=== PATIENT | female | born 1950 | race American Indian/Alaskan Native ===

== ENCOUNTER 2019-12-28 11:52 | Outpatient (CLI) | payer MEDICARE ==
--- NOTE | 2019-12-28 15:40 | Mammography Report ---
DIGITAL SCREENING MAMMOGRAM WITH CAD, 12/28/2019 INDICATION: Routine screening mammography. TECHNIQUE: Digital bilateral 2D mammography was obtained in the craniocaudal and mediolateral obliq ue projections. This examination was interpreted with the benefit of Computer-Aided Detection analysi s. COMPARISON: 11/22/2013 FINDINGS: Breast Density: The breasts are heterogeneously dense, which may obscure small masses. Left asymmetries and left upper outer calcifications require additional imaging. There is no evidence of dominant mass, suspicious calcifications or architectural distortion in the right breast. IMPRESSION: Left asymmetries and left upper outer calcifications requiring additional imaging. Recomm end recall for left lateral and spot magnification views and left breast ultrasound if needed. Follow up recommendation: Special View: Spot Category 0: Incomplete. Needs additional imaging evaluation and/or prior mammograms for comparison. A "normal" or negative report should not discourage follow up or biopsy of a clinically significant f inding. A written summary of these findings will be mailed to the patient. The patient will be entered into a mammography reporting system which will generate a reminder letter for the patient's next appointmen t at the appropriate interval. The [employer] recommends yearly mammograms starting at age 40 and continuing as l stephane as a woman is in good health. Breast MRI is recommended for women with an approximate 20-25% or greater lifetime risk of breast cancer, including women with a strong family history of breast or ova luis angel cancer or who have been treated for Hodgkin's disease. Signer Name: Ravi Burgos MD Signed: 12/28/2019 3:35 PM Workstation Name: [id number]
== END 2019-12-28 11:53 | disposition home or self-care (01) ==
LOC: MAMMO 11:52
PROVIDERS: ATTEND Internal Medicine
DX: Z12.31 Encounter for screening mammogram for malignant neoplasm of breast (principal)
CPT/HCPCS: 77067

== ENCOUNTER 2021-03-12 13:50 | Emergency (ER) | payer MEDICARE ==
--- NOTE | 2021-03-12 14:10 | Event Note ---
ED Screening Note Date of service: 03/12/21 Time: 14:08 ED Screening Note: 71-year-old female with a past medical history of COPD, coronary artery disease currently on Plavix, hypertension, hyperlipidemia and diabetes presents to the ER today with complaints of left upper back pain radiating around into her left chest and substernal area. Patient states that the pain started in her left back about 3 days ago and has since been radiating around into those areas. She has chronic shortness of breath secondary to COPD but she denies any worsening shortness of breath. She states that she has had a productive cough with white sputum but no wheezing. She states that the pain is worse with deep breaths and when she coughs and she describes it as a tight sharp pain. She denies any apparent fever at home. She denies any nausea vomiting, abdominal pain, lower extremity swelling or calf pain. This initial assessment/diagnostic orders/clinical plan/treatment(s) is/are subject to change based on patients health status, clinical progression and re- assessment by fellow clinical providers in the ED. Further treatment and workup at subsequent clinical providers discretion. Patient/guardian urged not to elope from the ED as their condition may be serious if not clinically assessed and managed. Initial orders include: Chest pain order set
--- NOTE | 2021-03-12 14:33 | XRay Report ---
CHEST 2 VIEWS INDICATION: left upper back/left chest pain. COMPARISON: 10/27/2013 FINDINGS: SUPPORT DEVICES: None. HEART: Within normal limits. LUNGS/PLEURA: Mild patchy left basilar airspace disease with otherwise clear lungs. No pneumothorax. ADDITIONAL FINDINGS: None. IMPRESSION: 1. Pulmonary findings as above. Signer Name: Cleveland Delgado MD Signed: 03/12/2021 2:28 PM Workstation Name: [id number]
[2021-03-12 15:05] LABS: Basophils # (Auto) 0.1 K/mm3 (0.0-0.1); Basophils % (Auto) 0.5 % (0.0-1.8); Eosinophils % (Auto) 0.4 % (0.0-4.3); Hemoglobin 14.7 gm/dl (10.1-14.3); Lymphocytes # (Auto) 1.2 K/mm3 (1.2-5.4); Lymphocytes % (Auto) 11.2 % (13.4-35.0); Mean Corpuscular HGB Conc 34 % (30-34); Mean Corpuscular Volume 90 fl (79-97); Monocytes # (Auto) 0.6 K/mm3 (0.0-0.8); Monocytes % (Auto) 5.5 % (0.0-7.3); Platelet Count 304 K/mm3 (140-440); Red Blood Count 4.88 M/mm3 (3.65-5.03); Red Cell Distribution Width 14.3 % (13.2-15.2)
[2021-03-12 15:15] LABS: INR 0.91 (0.87-1.13); Partial Thromboplastin Time 27.7 Sec. (24.2-36.6)
[2021-03-12 15:27] LABS: Alanine Aminotransferase 10 units/L (7-56); Albumin 4.1 g/dL (3.9-5); BUN/Creatinine Ratio 14; Blood Urea Nitrogen 11 mg/dL (7-17); Calcium 10.5 mg/dL (8.4-10.2); Hemolysis Index 22
[2021-03-12] MEDS ORDERED: AZITHROMYCIN/NS 500 MG/250 ML 500 MG/250 ML BAG IV ONE (21:55)
[2021-03-12] MEDS ORDERED: cefTRIAXone/NS 1 GM/50 ML 1 GM/50 ML BAG IV ONE (21:55)
--- NOTE | 2021-03-12 22:01 | Emergency Department Report ---
ED General Adult HPI - General Chief complaint: Chest Pain Stated complaint: CHEST PAIN, BACK PAIN Time Seen by Provider: 03/12/21 14:07 Source: patient Mode of arrival: Wheelchair Limitations: No Limitations - History of Present Illness Initial comments: Patient is 71 years old female with history of hypertension, hyperlipidemia, diabetes and coronary artery disease. Patient presented to the ER complaining left posterior back that radiated to her anterior chest wall. Patient stated the pain is sharp and increases with cough. Patient stated that she has been having productive cough for the last 3 days also. Patient denied any fever or chills. No shortness of breath. - Related Data Home Medications Medication Instructions Recorded Confirmed Last Taken Albuterol Sulfate [Proventil HFA] 1 - 2 puff IH Q4H PRN 10/27/13 10/27/13 10/27/13 2 Cholecalciferol (Vitamin D3) 5,000 unit PO DAILY 10/27/13 10/27/13 10/27/13 19:51 [Vitamin D3] 1 Clopidogrel Bisulfate [Plavix] 75 mg PO DAILY 10/27/13 10/28/13 10/27/13 19:52 75 Gabapentin [Neurontin] 600 mg PO HS 10/27/13 10/28/13 10/27/13 19:52 300 Isosorbide Mononitrate [Isosorbide 60 mg PO DAILY 10/27/13 10/28/13 10/27/13 Mononitrate ER (IMDUR)] 60 Lisinopril/Hydrochlorothiazide 1 tab PO QDAY 10/27/13 10/27/13 10/27/13 19:50 [Zestoretic 20-25 mg] 1 Oxybutynin [Ditropan] 5 mg PO DAILY 10/27/13 10/28/13 10/27/13 19:52 5 Simvastatin 20 mg PO QDAY 10/27/13 10/27/13 10/27/13 20 Previous Rx's Medication Instructions Recorded Last Taken Type Pantoprazole [Protonix TAB] 40 mg PO DAILY #30 tablet 10/31/13 Unknown Rx Allergies Allergy/AdvReac Type Severity Reaction Status Date / Time aspirin Allergy Hives Verified 03/12/21 14:08 Sulfa (Sulfonamide Allergy Vomiting Verified 03/12/21 14:08 Antibiotics) ED Review of Systems ROS: Stated complaint: CHEST PAIN, BACK PAIN Other details as noted in HPI Comment: All other systems reviewed and negative Constitutional: denies: chills, fever Respiratory: cough. denies: shortness of breath, SOB with exertion, SOB at rest, wheezing Cardiovascular: denies: chest pain, palpitations, dyspnea on exertion Gastrointestinal: denies: abdominal pain ED Past Medical Hx - Past Medical History Hx Hypertension: Yes Hx Heart Attack/AMI: Yes ([place]) Hx Congestive Heart Failure: No Hx Diabetes: No Hx Arthritis: Yes Hx Asthma: No Hx COPD: Yes (COPD) - Surgical History Additional Surgical History: hysterectomy - Social History Smoking Status: Current Every Day Smoker Substance Use Type: None - Medications Home Medications: Home Medications Medication Instructions Recorded Confirmed Last Taken Type Albuterol Sulfate [Proventil HFA] 1 - 2 puff IH Q4H PRN 10/27/13 10/27/13 10/27/13 History 2 Cholecalciferol (Vitamin D3) 5,000 unit PO DAILY 10/27/13 10/27/13 10/27/13 19:51 History [Vitamin D3] 1 Clopidogrel Bisulfate [Plavix] 75 mg PO DAILY 10/27/13 10/28/13 10/27/13 19:52 History 75 Gabapentin [Neurontin] 600 mg PO HS 10/27/13 10/28/13 10/27/13 19:52 History 300 Isosorbide Mononitrate [Isosorbide 60 mg PO DAILY 10/27/13 10/28/13 10/27/13 History Mononitrate ER (IMDUR)] 60 Lisinopril/Hydrochlorothiazide 1 tab PO QDAY 10/27/13 10/27/13 10/27/13 19:50 History [Zestoretic 20-25 mg] 1 Oxybutynin [Ditropan] 5 mg PO DAILY 10/27/13 10/28/13 10/27/13 19:52 History 5 Simvastatin 20 mg PO QDAY 10/27/13 10/27/13 10/27/13 History 20 Pantoprazole [Protonix TAB] 40 mg PO DAILY #30 tablet 10/31/13 Unknown Rx ED Physical Exam - General Limitations: No Limitations General appearance: alert, in no apparent distress - Head Head exam: Present: atraumatic, normocephalic, normal inspection - Eye Eye exam: Present: normal appearance, PERRL - ENT ENT exam: Present: normal exam, normal orophraynx, mucous membranes moist - Neck Neck exam: Present: normal inspection. Absent: tenderness, meningismus - Respiratory Respiratory exam: Present: rales. Absent: respiratory distress, wheezes, rhonchi, accessory muscle use, decreased breath sounds, prolonged expiratory - Cardiovascular Cardiovascular Exam: Present: regular rate, normal rhythm, normal heart sounds - GI/Abdominal GI/Abdominal exam: Present: soft, normal bowel sounds. Absent: distended, tenderness, guarding, rebound, rigid, organomegaly, mass, bruit, pulsatile mass, hernia - Extremities Exam Extremities exam: Present: normal inspection, full ROM, normal capillary refill. Absent: tenderness, pedal edema, calf tenderness - Back Exam Back exam: Present: normal inspection, full ROM. Absent: CVA tenderness (R), CVA tenderness (L) - Neurological Exam Neurological exam: Present: alert, oriented X3, CN II-XII intact, normal gait, reflexes normal. Absent: motor sensory deficit - Psychiatric Psychiatric exam: Present: normal mood - Skin Skin exam: Present: warm, intact, normal color ED Course Vital Signs 03/12/21 03/12/21 13:56 21:48 Temperature 98.8 F Pulse Rate 93 H 68 Respiratory 20 18 Rate Blood Pressure 180/89 Blood Pressure 181/104 [Right] O2 Sat by Pulse 93 96 Oximetry ED Medical Decision Making - Lab Data Result diagrams: 03/12/21 14:30 03/12/21 14:30 - EKG Data -: EKG Interpreted by Dc EKG shows normal: sinus rhythm Rate: normal - EKG Data Interpretation: no acute changes - Radiology Data Radiology results: report reviewed - Medical Decision Making Patient is 71 years old female with history of hypertension, hyperlipidemia, diabetes and coronary artery disease. Patient presented to the ER complaining left posterior back that radiated to her anterior chest wall. Patient stated the pain is sharp and increases with cough. Patient stated that she has been having productive cough for the last 3 days also. Patient denied any fever or chills. No shortness of breath. Patient stated that she received 2 doses of COVID-19 vaccine last dose was February 16. EKG is unremarkable. Labs reviewed and is unremarkable including negative troponin x3. Chest x-ray showed left lower lobe infiltrate consistent with community-acquired pneumonia. Patient received Rocephin 1 g and 500 mg of Zithromax. Patient given prescription for Zithromax and advised to follow-up with her primary doctor in the next 2 to 3 days and to return to the ER if she develop any new symptoms. Critical care attestation.: If time is entered above; I have spent that time in minutes in the direct care of this critically ill patient, excluding procedure time. ED Disposition Clinical Impression: Left lower lobe pneumonia Disposition: DC- TO HOME OR SELFCARE Is pt being admited?: No Condition: Stable Instructions: Bacterial Pneumonia (ED), Community-Acquired Pneumonia, Adult Referrals: PRIMARY CARE, [Primary Care Provider] - 3-5 Days
[2021-03-13 00:59] VITALS: BP 138/79
--- NOTE | 2021-03-14 17:26 | Electrocardiograph Report ---
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
== END 2021-03-13 00:45 | disposition home or self-care (01) ==
LOC: ED 13:50
DX: J18.1 Lobar pneumonia, unspecified organism (principal); I10 Essential (primary) hypertension; I25.2 Old myocardial infarction; M19.91 Primary osteoarthritis, unspecified site; J44.9 Chronic obstructive pulmonary disease, unspecified; F17.200 Nicotine dependence, unspecified, uncomplicated; Z90.710 Acquired absence of both cervix and uterus; Z79.899 Other long term (current) drug therapy; Z88.2 Allergy status to sulfonamides; Z88.8 Allergy status to other drugs, medicaments and biological substances
CPT/HCPCS: 36415; 71046; 80053; 83690; 84484; 85025; 85610; 85730; 87040; 93005; 96365; 96366; 96367; 99284; J0456; J0696

== ENCOUNTER 2021-03-18 09:08 | Emergency (ER) | payer MEDICARE ==
--- NOTE | 2021-03-18 10:33 | XRay Report ---
CHEST 2 VIEWS INDICATION / CLINICAL INFORMATION: Crackles along left lower lung. Recently diagnosed pneumonia. COMPARISON: 2 views of the chest from 03/12/2021. FINDINGS: SUPPORT DEVICES: None. HEART / MEDIASTINUM: No significant abnormality. LUNGS / PLEURA: Left basilar pleural-parenchymal opacities have increased. Increased right basilar op acities are also noted. The lungs are otherwise clear. No pneumothorax. ADDITIONAL FINDINGS: No significant additional findings. IMPRESSION: Increased bibasilar opacities, left greater than right, which are most concerning for interval progre ssion of pneumonia. Continued radiographic follow-up to resolution is recommended. Signer Name: Darrick Son MD Signed: 03/18/2021 10:28 AM Workstation Name: [id number]
[2021-03-18] MEDS ORDERED: hydrALAZINE 20 MG/1 ML INJ IV ONE (13:08)
[2021-03-18 13:35] LABS: Basophils % (Auto) 0.4 % (0.0-1.8); Eosinophils # (Auto) 0.1 K/mm3 (0.0-0.4); Eosinophils % (Auto) 1.3 % (0.0-4.3); Hematocrit 44.3 % (30.3-42.9); Hemoglobin 14.6 gm/dl (10.1-14.3); Lymphocytes # (Auto) 1.6 K/mm3 (1.2-5.4); Lymphocytes % (Auto) 18.1 % (13.4-35.0); Mean Corpuscular HGB Conc 33 % (30-34); Mean Corpuscular Volume 91 fl (79-97); Monocytes # (Auto) 0.6 K/mm3 (0.0-0.8); Monocytes % (Auto) 6.6 % (0.0-7.3); Platelet Count 321 K/mm3 (140-440); Red Blood Count 4.89 M/mm3 (3.65-5.03)
[2021-03-18 13:57] LABS: Alanine Aminotransferase 9 units/L (7-56); Blood Urea Nitrogen 10 mg/dL (7-17); Calcium 10.3 mg/dL (8.4-10.2); Hemolysis Index 4
[2021-03-18 13:58] LABS: BUN/Creatinine Ratio 14
--- NOTE | 2021-03-18 14:47 | Emergency Department Report ---
HPI - General Chief Complaint: Back Pain/Injury Time Seen by Provider: 03/18/21 10:02 - HPI HPI: This is a 71-year-old female who presents to the emergency department with a complaint of some pain from the middle left back that wraps around towards her chest. It is associated with some shortness of breath and an occasional mixed dry and productive cough. This has been going on for the past week. The patient was seen here 6 days ago when the symptoms first began and was found to have a left lower lobe pneumonia. She was given a dose of Rocephin in the emergency department and discharged on a Z-Jacek. She finished the Z-Jacek but says that her symptoms have not improved. She denies any fever, lower extremity swelling, nausea, vomiting or diaphoresis. She has a past medical history of asthma, COPD not oxygen dependent, coronary artery disease with previous [place], hypertension. She is a tobacco smoker. No recent travel or sick contacts at home. She has a primary care physician through the [facility] but has not seen them regarding her symptoms. ED Past Medical Hx - Past Medical History Previous Medical History?: Yes Hx Hypertension: Yes Hx Heart Attack/AMI: Yes ([place]) Hx Congestive Heart Failure: No Hx Diabetes: No Hx Arthritis: Yes Hx Asthma: No Hx COPD: Yes (COPD) - Surgical History Past Surgical History?: Yes Additional Surgical History: hysterectomy - Social History Smoking Status: Current Every Day Smoker Substance Use Type: None - Medications Home Medications: Home Medications Medication Instructions Recorded Confirmed Last Taken Type Albuterol Sulfate [Proventil HFA] 1 - 2 puff IH Q4H PRN 10/27/13 10/27/13 10/27/13 History 2 Cholecalciferol (Vitamin D3) 5,000 unit PO DAILY 10/27/13 10/27/13 10/27/13 19:51 History [Vitamin D3] 1 Clopidogrel Bisulfate [Plavix] 75 mg PO DAILY 10/27/13 10/28/13 10/27/13 19:52 History 75 Gabapentin [Neurontin] 600 mg PO HS 10/27/13 10/28/13 10/27/13 19:52 History 300 Isosorbide Mononitrate [Isosorbide 60 mg PO DAILY 10/27/13 10/28/13 10/27/13 History Mononitrate ER (IMDUR)] 60 Lisinopril/Hydrochlorothiazide 1 tab PO QDAY 10/27/13 10/27/13 10/27/13 19:50 History [Zestoretic 20-25 mg] 1 Oxybutynin [Ditropan] 5 mg PO DAILY 10/27/13 10/28/13 10/27/13 19:52 History 5 Simvastatin 20 mg PO QDAY 10/27/13 10/27/13 10/27/13 History 20 Pantoprazole [Protonix TAB] 40 mg PO DAILY #30 tablet 10/31/13 Unknown Rx Azithromycin [Zithromax Z-JACEK] 250 mg PO DAILY 1 Days tab 03/12/21 Unknown Rx Benzonatate [Tessalon Perles] 100 mg PO Q8HR PRN #20 capsule 03/18/21 Unknown Rx levoFLOXacin [Levaquin] 750 mg PO QDAY #7 tablet 03/18/21 Unknown Rx ED Review of Systems ROS: Stated complaint: C PACK RE EXAM Other details as noted in HPI Physical Exam - Physical Exam Vital Signs: Vital Signs 03/18/21 03/18/21 03/18/21 09:42 13:25 13:37 Temperature 98.4 F Pulse Rate 86 87 Respiratory 16 18 18 Rate Blood Pressure 175/94 140/80 [Right] O2 Sat by Pulse 97 97 97 Oximetry Physical Exam: GENERAL: The patient is well-developed well-nourished. HENT: Normocephalic. Atraumatic. Patient has moist mucous membranes. EYES: Extraocular motions are intact. NECK: Supple. Trachea is midline. CHEST/LUNGS: Mild rhonchi heard. No tachypnea or accessory muscle use. HEART/CARDIOVASCULAR: Regular. There is no tachycardia. There is no murmur. ABDOMEN: Abdomen is soft, nontender. Patient has normal bowel sounds. There is no abdominal distention. SKIN: Skin is warm and dry. NEURO: The patient is awake, alert, and oriented. The patient is cooperative. The patient has no focal neurologic deficits. Normal speech. MUSCULOSKELETAL: There is no tenderness or deformity. There is no limitation range of motion. There is no evidence of acute injury. BACK: No midline thoracic or lumbar tenderness to palpation. There is some reproducible lateral lower thoracic paraspinal tenderness to palpation. ED Course Vital Signs 03/18/21 03/18/21 03/18/21 09:42 13:25 13:37 Temperature 98.4 F Pulse Rate 86 87 Respiratory 16 18 18 Rate Blood Pressure 175/94 140/80 [Right] O2 Sat by Pulse 97 97 97 Oximetry ED Medical Decision Making - Lab Data Result diagrams: 03/18/21 13:07 03/18/21 13:07 Lab Results 03/18/21 03/18/21 Range/Units 13:07 13:07 WBC 8.6 (4.5-11.0) K/mm3 RBC 4.89 (3.65-5.03) M/mm3 Hgb 14.6 H (10.1-14.3) gm/dl Hct 44.3 H (30.3-42.9) % MCV 91 (79-97) fl MCH 30 (28-32) pg MCHC 33 (30-34) % RDW 14.0 (13.2-15.2) % Plt Count 321 (140-440) K/mm3 Lymph % (Auto) 18.1 (13.4-35.0) % [place] % (Auto) 6.6 (0.0-7.3) % Eos % (Auto) 1.3 (0.0-4.3) % Baso % (Auto) 0.4 (0.0-1.8) % Lymph # (Auto) 1.6 (1.2-5.4) K/mm3 [place] # (Auto) 0.6 (0.0-0.8) K/mm3 Eos # (Auto) 0.1 (0.0-0.4) K/mm3 Baso # (Auto) 0.0 (0.0-0.1) K/mm3 Seg Neutrophils % 73.6 H (40.0-70.0) % Seg Neutrophils # 6.4 (1.8-7.7) K/mm3 Sodium 139 (137-145) mmol/L Potassium 4.5 (3.6-5.0) mmol/L Chloride 101.5 (98-107) mmol/L Carbon Dioxide 28 (22-30) mmol/L Anion Gap 14 mmol/L BUN 10 (7-17) mg/dL Creatinine 0.7 (0.6-1.2) mg/dL Estimated GFR > 60 ml/min BUN/Creatinine Ratio 14 % Glucose 194 H (65-100) mg/dL Calcium 10.3 H (8.4-10.2) mg/dL Total Bilirubin < 0.20 (0.1-1.2) mg/dL AST 9 (5-40) units/L ALT 9 (7-56) units/L Alkaline Phosphatase 118 (35-129) units/L Troponin T < 0.010 (0.00-0.029) ng/mL Total Protein 7.4 (6.3-8.2) g/dL Albumin 4.0 (3.9-5) g/dL Albumin/Globulin Ratio 1.2 % - EKG Data -: EKG Interpreted by Wa EKG shows normal: sinus rhythm, axis, intervals, QRS complexes, ST-T waves Rate: normal - EKG Data When compared to previous EKG there are: no significant change Interpretation: unchanged when compared t (03/12/21) - Radiology Data Radiology results: report reviewed CHEST 2 VIEWS INDICATION / CLINICAL INFORMATION: Crackles along left lower lung. Recently diagnosed pneumonia. COMPARISON: 2 views of the chest from 03/12/2021. FINDINGS: SUPPORT DEVICES: None. HEART / MEDIASTINUM: No significant abnormality. LUNGS / PLEURA: Left basilar pleural-parenchymal opacities have increased. Increased right basilar opacities are also noted. The lungs are otherwise clear. No pneumothorax. ADDITIONAL FINDINGS: No significant additional findings. IMPRESSION: Increased bibasilar opacities, left greater than right, which are most concerning for interval progression of pneumonia. Continued radiographic follow-up to resolution is recommended. - Medical Decision Making This patient presents to the emergency department with some continued back pain with radiation around towards the chest, cough, and mild shortness of breath. On examination there is some mild rhonchi heard. No tachypnea or accessory muscle use. The patient does not appear in any respiratory or acute distress. She had a chest x-ray done through triage that showed some mild bilateral infiltrates, with left greater than right. The main concern for this is that it appears slightly worse than the chest x-ray she had done about 1 week ago. I looked at the patient's skin and did not see any rash, such as shingles, and the area of the patient's discomfort that goes from the back and wraps around towards the chest. There is some reproducible back pain to palpation. However, no midline thoracic or lumbar tenderness to palpation. The patient's labs are mostly unremarkable including CBC, metabolic panel and a negative troponin. EKG did not have any morphology consistent ST elevation myocardial infarction. She was given a dose of Levaquin in the emergency department. Patient appears safe for discharge home at this time. She has been instructed to follow-up with her primary care provider in the next few days. She has been given a prescription for Levaquin to treat the community-acquired pneumonia. She will return to the closest emergency department with any worsening of her symptoms, increased shortness of breath, chest pain, lower extremity swelling, development of a high fever, or with any acute distress. She understands and agrees to the plan. Critical Care Time: No Critical care attestation.: If time is entered above; I have spent that time in minutes in the direct care of this critically ill patient, excluding procedure time. ED Disposition Clinical Impression: Pneumonia Qualifiers: Pneumonia type: due to unspecified organism Laterality: bilateral Lung location: unspecified part of lung Qualified Code(s): J18.9 - Pneumonia, unspecified organism Back pain Qualifiers: Back pain location: back pain in unspecified location Chronicity: unspecified Back pain laterality: unspecified Qualified Code(s): M54.9 - Dorsalgia, unspecified COPD (chronic obstructive pulmonary disease) Qualifiers: COPD type: unspecified COPD Qualified Code(s): J44.9 - Chronic obstructive pulmonary disease, unspecified Disposition: TO HOME OR SELFCARE Is pt being admited?: No Condition: Stable Instructions: Acute Back Pain, Adult, Community-Acquired Pneumonia, Adult, Chronic Obstructive Pulmonary Disease (ED), Bacterial Pneumonia (ED) Additional Instructions: Please follow-up with your primary care physician in the next few days. Take all medications as prescribed. Return to the emergency department with any worsening of your symptoms, new or concerning symptoms not addressed during this current emergency department visit, or with any acute distress. Prescriptions: levoFLOXacin [Levaquin] 750 mg PO QDAY #7 tablet Benzonatate [Tessalon Perles] 100 mg PO Q8HR PRN #20 capsule PRN Reason: Cough Referrals: PRIMARY CARE, [Primary Care Provider] - 2-3 Days Time of Disposition: 15:01
[2021-03-18 14:58] VITALS: BP 125/71
[2021-03-18] MEDS ORDERED: dexAMETHasone 4 MG/ML VIAL IV ONE (14:59)
--- NOTE | 2021-03-21 11:37 | Electrocardiograph Report ---
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
== END 2021-03-18 15:17 | disposition home or self-care (01) ==
LOC: ED 09:08
DX: J18.9 Pneumonia, unspecified organism (principal); J44.9 Chronic obstructive pulmonary disease, unspecified; M54.6 Pain in thoracic spine; I10 Essential (primary) hypertension; I25.2 Old myocardial infarction; M19.91 Primary osteoarthritis, unspecified site; F17.200 Nicotine dependence, unspecified, uncomplicated; Z90.710 Acquired absence of both cervix and uterus; Z79.2 Long term (current) use of antibiotics; Z79.899 Other long term (current) drug therapy; Z88.2 Allergy status to sulfonamides; Z88.6 Allergy status to analgesic agent
CPT/HCPCS: 36415; 71046; 80053; 84484; 85025; 93005; 96365; 99284; J1956

== ENCOUNTER 2021-04-22 04:30 | Emergency (ER) | payer MEDICARE ==
[2021-04-22 05:19] LABS: Basophils % (Auto) 0.7 % (0.0-1.8); Eosinophils # (Auto) 0.1 K/mm3 (0.0-0.4); Eosinophils % (Auto) 1.7 % (0.0-4.3); Hematocrit 43.7 % (30.3-42.9); Lymphocytes # (Auto) 1.3 K/mm3 (1.2-5.4); Lymphocytes % (Auto) 22.2 % (13.4-35.0); Mean Corpuscular HGB Conc 34 % (30-34); Mean Corpuscular Volume 90 fl (79-97); Monocytes # (Auto) 0.4 K/mm3 (0.0-0.8); Monocytes % (Auto) 6.2 % (0.0-7.3); Platelet Count 308 K/mm3 (140-440); Red Blood Count 4.87 M/mm3 (3.65-5.03); Red Cell Distribution Width 14.6 % (13.2-15.2)
--- NOTE | 2021-04-22 05:20 | XRay Report ---
CHEST 2 VIEWS, 04/22/2021 4:56 AM INDICATION: Chest pain for one month COMPARISON: Chest radiograph, 03/18/2021 FINDINGS: Support devices: None. Heart: The cardiac silhouette is normal in size. Lungs/pleura: Pleuroparenchymal opacity is again noted at the left lung base similar to the previous study. The right lung remains clear. Additional findings: No significant acute abnormality. IMPRESSION: 1. Stable opacity at the left lung base. Findings may suggest atelectasis or developing infiltrate gutiérrez ch as pneumonia. Signer Name: Felisa Adhikari MD Signed: 04/22/2021 5:16 AM Workstation Name: [id number]
[2021-04-22 05:36] LABS: Alanine Aminotransferase 12 units/L (7-56); Albumin 4.5 g/dL (3.9-5); Blood Urea Nitrogen 7 mg/dL (7-17); Calcium 10.5 mg/dL (8.4-10.2); Hemolysis Index 2
[2021-04-22 05:37] LABS: BUN/Creatinine Ratio 10
[2021-04-22] MEDS ORDERED: MORPHINE 4 MG/1 ML INJ IV ONE (14:35)
[2021-04-22] MEDS ORDERED: SODIUM CHLORIDE 0.9% 500 ML 500 ML IV ONE (14:35)
[2021-04-22] MEDS ORDERED: ACETAMINOPHEN 325 MG TAB PO STA (14:35)
--- NOTE | 2021-04-22 14:37 | Emergency Department Report ---
ED General Adult HPI - General Chief complaint: Chest Pain Stated complaint: Left-sided chest wall pain PUI?: No Time Seen by Provider: 04/22/21 14:08 Source: patient, RN notes reviewed, old records reviewed Mode of arrival: Stretcher Limitations: No Limitations - History of Present Illness Initial comments: The patient was evaluated in the emergency department for symptoms described in the history of present illness. He/she was evaluated in the context of the global COVID-19 pandemic, which necessitated consideration that the patient might be at risk for infection with the virus that causes COVID-19. Institutional protocols and algorithms that pertain to the evaluation of patients at risk for COVID-19 are in a state of rapid change based on information released by regulatory bodies including the CDC and federal and state organizations. These policies and algorithms were followed during the patient's care in the emergency department. Please note that these policies, procedures and recommendations changed on a rapid basis. The patient is a 71-year-old female. She has a history of COPD and is not currently on home oxygen. She presents to the ER today with a complaint of nontraumatic painful left lateral thoracic rib pain, present for a few weeks to a few months. She has been seen in this hospital twice for similar complaints, and presumptively treated for community-acquired pneumonia, first with ceftr iaxone and azithromycin, and then Levaquin. She denies headache, neck pain, substernal chest pain, vomiting, diaphoresis, hematemesis, bright red blood per rectum, fevers and chills, urinary symptoms. Her pain increases with palpation, deep inspiration, decreases with rest. She denies DVT and pulmonary embolism risk factors. She is received her Covid vaccination. She does have an outpatient metal cut off saw tender, but she cannot recall their name. . -: Gradual, week(s) Location: chest (Left lateral thoracic wall) Radiation: back, abdomen Severity scale (0 -10): 5 Quality: aching Consistency: intermittent Improves with: rest Worsens with: movement - Related Data Home Medications Medication Instructions Recorded Confirmed Last Taken Albuterol Sulfate [Proventil HFA] 1 - 2 puff IH Q4H PRN 10/27/13 10/27/13 10/27/13 2 Cholecalciferol (Vitamin D3) 5,000 unit PO DAILY 10/27/13 10/27/13 10/27/13 19:51 [Vitamin D3] 1 Clopidogrel Bisulfate [Plavix] 75 mg PO DAILY 10/27/13 10/28/13 10/27/13 19:52 75 Gabapentin [Neurontin] 600 mg PO HS 10/27/13 10/28/13 10/27/13 19:52 300 Isosorbide Mononitrate [Isosorbide 60 mg PO DAILY 10/27/13 10/28/13 10/27/13 Mononitrate ER (IMDUR)] 60 Lisinopril/Hydrochlorothiazide 1 tab PO QDAY 10/27/13 10/27/13 10/27/13 19:50 [Zestoretic 20-25 mg] 1 Oxybutynin [Ditropan] 5 mg PO DAILY 10/27/13 10/28/13 10/27/13 19:52 5 Simvastatin 20 mg PO QDAY 10/27/13 10/27/13 10/27/13 20 Previous Rx's Medication Instructions Recorded Last Taken Type Pantoprazole [Protonix TAB] 40 mg PO DAILY #30 tablet 10/31/13 Unknown Rx Acetaminophen [Non-Aspirin Extra 500 mg PO Q6HR PRN #30 tablet 04/22/21 Unknown Rx Strength] Albuterol Sulfate [Proair 90 mcg IH Q4HR PRN #2 aer.pow.ba 04/22/21 Unknown Rx Respiclick] Morphine Sulfate [Morphine Sulfate 7.5 mg PO Q6HR PRN #10 tablet 04/22/21 Unknown Rx IR] Allergies Allergy/AdvReac Type Severity Reaction Status Date / Time aspirin Allergy Hives Verified 03/12/21 14:08 Sulfa (Sulfonamide Allergy Vomiting Verified 03/12/21 14:08 Antibiotics) ED Review of Systems ROS: Stated complaint: CHEST/BACK/ARM PAIN Other details as noted in HPI Constitutional: denies: fever Eyes: denies: vision change ENT: denies: epistaxis Respiratory: cough Cardiovascular: chest pain (Left lateral thoracic pain) Gastrointestinal: abdominal pain. denies: nausea, vomiting, diarrhea Genitourinary: denies: dysuria Musculoskeletal: back pain Neurological: weakness Hematological/Lymphatic: denies: easy bleeding ED Past Medical Hx - Past Medical History Hx Hypertension: Yes Hx Heart Attack/AMI: Yes (ND) Hx Congestive Heart Failure: No Hx Diabetes: No Hx Arthritis: Yes Hx Asthma: No Hx COPD: Yes (COPD) - Surgical History Additional Surgical History: hysterectomy - Social History Smoking Status: Current Every Day Smoker - Medications Home Medications: Home Medications Medication Instructions Recorded Confirmed Last Taken Type Albuterol Sulfate [Proventil HFA] 1 - 2 puff IH Q4H PRN 10/27/13 10/27/13 10/27/13 History 2 Cholecalciferol (Vitamin D3) 5,000 unit PO DAILY 10/27/13 10/27/13 10/27/13 19:51 History [Vitamin D3] 1 Clopidogrel Bisulfate [Plavix] 75 mg PO DAILY 10/27/13 10/28/13 10/27/13 19:52 History 75 Gabapentin [Neurontin] 600 mg PO HS 10/27/13 10/28/13 10/27/13 19:52 History 300 Isosorbide Mononitrate [Isosorbide 60 mg PO DAILY 10/27/13 10/28/13 10/27/13 History Mononitrate ER (IMDUR)] 60 Lisinopril/Hydrochlorothiazide 1 tab PO QDAY 10/27/13 10/27/13 10/27/13 19:50 History [Zestoretic 20-25 mg] 1 Oxybutynin [Ditropan] 5 mg PO DAILY 10/27/13 10/28/13 10/27/13 19:52 History 5 Simvastatin 20 mg PO QDAY 10/27/13 10/27/13 10/27/13 History 20 Pantoprazole [Protonix TAB] 40 mg PO DAILY #30 tablet 10/31/13 Unknown Rx Acetaminophen [Non-Aspirin Extra 500 mg PO Q6HR PRN #30 tablet 04/22/21 Unknown Rx Strength] Albuterol Sulfate [Proair 90 mcg IH Q4HR PRN #2 aer.pow.ba 04/22/21 Unknown Rx Respiclick] Morphine Sulfate [Morphine Sulfate 7.5 mg PO Q6HR PRN #10 tablet 04/22/21 Unknown Rx IR] ED Physical Exam - General Limitations: No Limitations General appearance: alert, in no apparent distress, obese - Head Head exam: Present: atraumatic, normocephalic - Eye Eye exam: Present: normal appearance, EOMI. Absent: nystagmus - ENT ENT exam: Present: normal exam, normal orophraynx, mucous membranes moist, normal external ear exam - Neck Neck exam: Present: normal inspection, full ROM. Absent: tenderness, meningismus - Respiratory Respiratory exam: Present: normal lung sounds bilaterally, chest wall tenderness. Absent: respiratory distress, wheezes, rales, rhonchi, stridor - Cardiovascular Cardiovascular Exam: Present: regular rate, normal rhythm, normal heart sounds. Absent: bradycardia, tachycardia, irregular rhythm, systolic murmur, diastolic murmur, rubs, gallop - GI/Abdominal GI/Abdominal exam: Present: soft, tenderness, other (There is left upper quadrant tenderness to deep palpation). Absent: distended, guarding, rebound, rigid, pulsatile mass - Extremities Exam Extremities exam: Present: normal inspection, full ROM, other (2+ pulses noted in the bilateral upper and lower extremities. There is no palpable cord. negative Homans sign. Muscular compartments are soft. The pelvis is stable.). Absent: pedal edema, calf tenderness - Back Exam Back exam: Present: normal inspection, full ROM. Absent: tenderness, CVA tenderness (R), CVA tenderness (L), paraspinal tenderness, vertebral tenderness - Neurological Exam Neurological exam: Present: alert, oriented X3, normal gait, other (No facial droop. Tongue midline. Extraocular movements intact bilaterally. Facial sensation intact to light touch in V1, V2, V3 distribution bilaterally. 5 and a 5 strength in 4 extremities. Sensation intact to light touch in 4 extremities.). Absent: motor sensory deficit - Psychiatric Psychiatric exam: Present: normal affect, normal mood - Skin Skin exam: Present: warm, dry, intact, normal color. Absent: rash ED Course Vital Signs 04/22/21 04/22/21 04/22/21 04:37 14:35 15:37 Temperature 98.0 F 97.1 F L Pulse Rate 96 H 80 90 Respiratory 18 18 18 Rate Blood Pressure 140/88 Blood Pressure 168/82 174/99 [Right] O2 Sat by Pulse 96 97 99 Oximetry 04/22/21 16:24 Temperature Pulse Rate 80 Respiratory 18 Rate Blood Pressure Blood Pressure 182/92 [Right] O2 Sat by Pulse 99 Oximetry - Reevaluation(s) Reevaluation #1: 04/22/21 17:19 Elevated blood pressure is chronic. Please reference the [employer] clinical policy on asymptomatic hypertension. After an extensive discussion with the patient, she did state that she felt that she probably had lung cancer, she reports that her sister also had lung cancer, and "that she beat it." She reports she will likely follow-up with outpatient hematology pediatric oncology nurse, Dr. Kaba She has endorsed understanding to discharge directions. Reevaluation #2: 04/22/21 17:28 Discussed history, physical, pertinent imaging studies and overall clinical impression with Dr. Whaley pulmonary. He would like to see the patient in his office. He has received this patient's contact information, and should make arrangements with his office staff. I have also provided the patient with his contact information to arrange close outpatient follow-up. ED Medical Decision Making - Lab Data Result diagrams: 04/22/21 05:02 04/22/21 05:02 Vital Signs 04/22/21 04/22/21 04/22/21 04:37 14:35 15:37 Temperature 98.0 F 97.1 F L Pulse Rate 96 H 80 90 Respiratory 18 18 18 Rate Blood Pressure 140/88 Blood Pressure 168/82 174/99 [Right] O2 Sat by Pulse 96 97 99 Oximetry 04/22/21 16:24 Temperature Pulse Rate 80 Respiratory 18 Rate Blood Pressure Blood Pressure 182/92 [Right] O2 Sat by Pulse 99 Oximetry Lab Results 04/22/21 04/22/21 04/22/21 Range/Units 05:02 05:02 07:25 WBC 5.9 (4.5-11.0) K/mm3 RBC 4.87 (3.65-5.03) M/mm3 Hgb 15.0 H (10.1-14.3) gm/dl Hct 43.7 H (30.3-42.9) % MCV 90 (79-97) fl MCH 31 (28-32) pg MCHC 34 (30-34) % RDW 14.6 (13.2-15.2) % Plt Count 308 (140-440) K/mm3 Lymph % (Auto) 22.2 (13.4-35.0) % [facility] % (Auto) 6.2 (0.0-7.3) % Eos % (Auto) 1.7 (0.0-4.3) % Baso % (Auto) 0.7 (0.0-1.8) % Lymph # (Auto) 1.3 (1.2-5.4) K/mm3 [facility] # (Auto) 0.4 (0.0-0.8) K/mm3 Eos # (Auto) 0.1 (0.0-0.4) K/mm3 Baso # (Auto) 0.0 (0.0-0.1) K/mm3 Seg Neutrophils % 69.2 (40.0-70.0) % Seg Neutrophils # 4.1 (1.8-7.7) K/mm3 Sodium 136 L (137-145) mmol/L Potassium 4.3 (3.6-5.0) mmol/L Chloride 99.7 (98-107) mmol/L Carbon Dioxide 26 (22-30) mmol/L Anion Gap 15 mmol/L BUN 7 (7-17) mg/dL Creatinine 0.7 (0.6-1.2) mg/dL Estimated GFR > 60 ml/min BUN/Creatinine Ratio 10 % Glucose 233 H (65-100) mg/dL Calcium 10.5 H (8.4-10.2) mg/dL Magnesium (1.7-2.3) mg/dL Total Bilirubin 0.30 (0.1-1.2) mg/dL AST 17 (5-40) units/L ALT 12 (7-56) units/L Alkaline Phosphatase 119 (35-129) units/L Total Creatine Kinase (30-135) units/L Troponin T < 0.010 < 0.010 (0.00-0.029) ng/mL Total Protein 8.0 (6.3-8.2) g/dL Albumin 4.5 (3.9-5) g/dL Albumin/Globulin Ratio 1.3 % Lipase (13-60) units/L Urine Bilirubin (Negative) Urine RBC (Auto) (0.0-6.0) /HPF U Epithel Cells (Auto) (0-13.0) /HPF 04/22/21 04/22/21 04/22/21 Range/Units 11:41 11:41 14:35 WBC (4.5-11.0) K/mm3 RBC (3.65-5.03) M/mm3 Hgb (10.1-14.3) gm/dl Hct (30.3-42.9) % MCV (79-97) fl MCH (28-32) pg MCHC (30-34) % RDW (13.2-15.2) % Plt Count (140-440) K/mm3 Lymph % (Auto) (13.4-35.0) % [facility] % (Auto) (0.0-7.3) % Eos % (Auto) (0.0-4.3) % Baso % (Auto) (0.0-1.8) % Lymph # (Auto) (1.2-5.4) K/mm3 [facility] # (Auto) (0.0-0.8) K/mm3 Eos # (Auto) (0.0-0.4) K/mm3 Baso # (Auto) (0.0-0.1) K/mm3 Seg Neutrophils % (40.0-70.0) % Seg Neutrophils # (1.8-7.7) K/mm3 Sodium (137-145) mmol/L Potassium (3.6-5.0) mmol/L Chloride (98-107) mmol/L Carbon Dioxide (22-30) mmol/L Anion Gap mmol/L BUN (7-17) mg/dL Creatinine (0.6-1.2) mg/dL Estimated GFR ml/min BUN/Creatinine Ratio % Glucose (65-100) mg/dL Calcium (8.4-10.2) mg/dL Magnesium 2.10 (1.7-2.3) mg/dL Total Bilirubin (0.1-1.2) mg/dL AST (5-40) units/L ALT (7-56) units/L Alkaline Phosphatase (35-129) units/L Total Creatine Kinase 73 (30-135) units/L Troponin T < 0.010 (0.00-0.029) ng/mL Total Protein (6.3-8.2) g/dL Albumin (3.9-5) g/dL Albumin/Globulin Ratio % Lipase 19 (13-60) units/L Urine Bilirubin Neg (Negative) Urine RBC (Auto) 1.0 (0.0-6.0) /HPF U Epithel Cells (Auto) 2.0 (0-13.0) /HPF - EKG Data -: EKG Interpreted by Al EKG shows normal: sinus rhythm Rate: normal - EKG Data When compared to previous EKG there are: no significant change Interpretation: unchanged when compared t 04/22/21 17:04 EKG today interpreted at 04: 46 Sinus rhythm, 92 bpm. Normal axis, normal intervals, left ventricular hypertrophy. Not a STEMI, unchanged from prior EKG from 03/18/2021 - Radiology Data Radiology results: report reviewed, image reviewed [facility] [address] [place] [address] XRay Report Signed Patient: MARLENE WILBURN MR#: [id number] : 1950 Acct:[id number] Age/Sex: 71 / F ADM Date: 04/22/21 Loc: ED Attending Dr: Ordering Physician: ED MD JOVANI Date of Service: 04/22/21 Procedure(s): XR chest routine 2V Accession Number(s): [id number] cc: ED DOCMD Fluoro Time In Minutes: CHEST 2 VIEWS, 04/22/2021 4:56 AM INDICATION: Chest pain for one month COMPARISON: Chest radiograph, 03/18/2021 FINDINGS: Support devices: None. Heart: The cardiac silhouette is normal in size. Lungs/pleura: Pleuroparenchymal opacity is again noted at the left lung base similar to the previous study. The right lung remains clear. Additional findings: No significant acute abnormality. IMPRESSION: 1. Stable opacity at the left lung base. Findings may suggest atelectasis or developing infiltrate such as pneumonia. Signer Name: Felisa Adhikari MD Signed: 04/22/2021 5:16 AM Workstation Name: [id number] Transcribed By: EB Dictated By: Felisa Adhikari MD Electronically Authenticated By: Felisa Adhikari MD Signed Date/Time: 515 DD/ 3 CTA CHEST WITH IV CONTRAST INDICATION: Left-sided pleuritic chest pain 100 ml omni 350 . TECHNIQUE: Axial CT images were obtained through the chest after i njection of 100 cc IV contrast. 3 plane MIP reconstructions were produced. All CT scans at this location are performed using CT dose reduction for ALARA by means of automated exposure control. COMPARISON: None available. FINDINGS: PULMONARY ARTERIES: No pulmonary emboli. THORACIC AORTA: No acute abnormality. HEART: Normal. CORONARY ARTERIES: No significant calcification. PLEURA: Small to moderate left pleural effusion with some enhancing pleural-based nodule component image 156 likely secondary to malignant pleural effusion. No pneumothorax. LYMPH NODES: Left aortopulmonary debra mass measures 3.7 x 2.1 cm series 4 image 182. Left hilar debra mass measures 2.4 cm. LUNGS: 4.2 x 5.3 cm left lower lobe primary mass image 155. Partial compressive atelectasis left lower lobe. Multiple small bilateral pulmonary nodules characteristic for pulmonary metastases, one of which measures 1.0 cm subpleural aspect right lower lobe ADDITIONAL FINDINGS: None. UPPER ABDOMEN: 3.7 cm right adrenal nodule SKELETAL STRUCTURES: No significant osseous abnormality. IMPRESSION: 1. No CT evidence for pulmonary embolism. 2. 5 cm left lower lobe mass likely represents primary lung cancer 3 Small to moderate malignant left pleural effusion with mediastinal and left hilar adenopathy and bilateral pulmonary metastases 4. Indeterminate 3.7 cm right adrenal nodule worrisome for adrenal metastasis. MRI may confirm presence or absence of adrenal adenoma Signer Name: Roland Lentz MD Signed: 04/22/2021 3:36 PM Workstation Name: [id number] - Medical Decision Making Differential diagnosis, including but not limited to: Pulmonary embolism, pneumonia, costochondritis, pleuritis, pleurisy, pleural effusion, malignancy Assessment and plan: 71-year-old female, who was afebrile, with reassuring vital signs, with a known history of COPD, with persistent left-sided thoracic and chest wall pain, has completed 2 courses of antibiotics, and is still symptomat ic. CT scan of the chest, abdomen, pelvis was obtained, given persistence of pain, persistent abnormal x-ray findings, and left upper quadrant pain. Unfortunately, she likely has primary lung cancer, with metastatic disease, and a small pleural effusion, it is likely experiencing pain secondary to the aforementioned. The patient tells me that she was able to take ibuprofen at home, and she is therefore medicated with Toradol, and morphine, which improved her symptoms. Her laboratory studies have not demonstrated any emergent abnormality that would require admission or hospitalization, and her CT scan findings do not require emergent intervention at this time. I will contact her metal cut off saw tender animation producer to arrange outpatient follow-up. I had extensive discussion with the patient regarding significance of findings, and need to closely follow-up with outpatient pulmonology, as well as hematology oncology, to initiate a plan of care. Ultimately, the patient has articulated and endorsed understanding to this plan of care, and is reliable to follow-up as an outpatient. EKG unchanged from prior, multiple negative troponins, symptoms unchanged for a few weeks, this is very unlikely to be coronary artery disease. Critical care attestation.: If time is entered above; I have spent that time in minutes in the direct care of this critically ill patient, excluding procedure time. ED Disposition Clinical Impression: Lung mass, Pleural effusion, Adrenal mass, Adenopathy, Left upper quadrant abdominal pain, COPD (chronic obstructive pulmonary disease), Chest wall pain Disposition: - TO HOME OR SELFCARE Is pt being admited?: No Does the pt Need Aspirin: No Condition: Good Instructions: Nonspecific Chest Pain, Adult, Lung Cancer, Chronic Obstructive Pulmonary Disease (ED) Additional Instructions: As we discussed, CT scan of the chest suggest primary lung cancer, with small effusion/collection of fluid, and likely metastatic cancer. Please have a primary care doctor, metal cut off saw tender, or hematology pediatric oncology nurse contact the medical records department to obtain copies of laboratory studies and radiology studies, and urgently follow-up on abnormal findings. Do not take metformin medication for the next 2 days, if patient takes this medication. This is the most likely reason that patient is experiencing physical pain. We recommend that the patient follow-up as soon as possible with an outpatient primary care doctor, metal cut off saw tender, or hematology pediatric oncology nurse to initiate outpatient care for presumed lung cancer. Dr. Whaley is a local metal cut off saw tender. Dr. Arnold is a local hematology pediatric oncology nurse. Advance diet as tolerated, and please take the pain medication and nausea medications as needed and directed. Please return to the emergency room right away with new pain, worsened pain, migration of pain, projectile vomiting, change in mental status, confusion, inability to tolerate liquid feeds, new, worsened or different symptoms not present on the initial emergency room evaluation. It is very important that the patient follow-up as an outpatient as soon as possible to complete work-up and initiate therapy for presumed metastatic lung cancer. Not following up in the timely fashion as recommended may results and untreated metastatic lung cancer, which may cause , disability, paralysis, loss of quality of life. Prescriptions: Morphine Sulfate [Morphine Sulfate IR] 7.5 mg PO Q6HR PRN #10 tablet PRN Reason: Pain , Severe (7-10) Acetaminophen [Non-Aspirin Extra Strength] 500 mg PO Q6HR PRN #30 tablet PRN Reason: Pain , Severe (7-10) Albuterol Sulfate [Proair Respiclick] 90 mcg IH Q4HR PRN #2 aer.pow.ba PRN Reason: Wheezing Referrals: [facility] [Other] - 3-5 Days APOORVA WHALEY MD [Staff Physician] - 3-5 Days PAUL ARNOLD MD [Staff Physician] - 3-5 Days
--- NOTE | 2021-04-22 15:02 | Electrocardiograph Report ---
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
[2021-04-22 16:27] VITALS: BP 182/92
--- NOTE | 2021-04-22 16:41 | Cat Scan Report ---
CTA CHEST WITH IV CONTRAST INDICATION: Left-sided pleuritic chest pain 100 ml omni 350 . TECHNIQUE: Axial CT images were obtained through the chest after injection of 100 cc IV contrast. 3 plane MIP re constructions were produced. All CT scans at this location are performed using CT dose reduction for ALARA by means of automated exposure control. COMPARISON: None available. FINDINGS: PULMONARY ARTERIES: No pulmonary emboli. THORACIC AORTA: No acute abnormality. HEART: Normal. CORONARY ARTERIES: No significant calcification. PLEURA: Small to moderate left pleural effusion with some enhancing pleural-based nodule component im age 89 likely secondary to malignant pleural effusion. No pneumothorax. LYMPH NODES: Left aortopulmonary debra mass measures 3.7 x 2.1 cm series 4 image 182. Left hilar ion l mass measures 2.4 cm. LUNGS: 4.2 x 5.3 cm left lower lobe primary mass image 155. Partial compressive atelectasis left lowe r lobe. Multiple small bilateral pulmonary nodules characteristic for pulmonary metastases, one of wh ich measures 1.0 cm subpleural aspect right lower lobe ADDITIONAL FINDINGS: None. UPPER ABDOMEN: 3.7 cm right adrenal nodule SKELETAL STRUCTURES: No significant osseous abnormality. IMPRESSION: 1. No CT evidence for pulmonary embolism. 2. 5 cm left lower lobe mass likely represents primary lung cancer 3 Small to moderate malignant left pleural effusion with mediastinal and left hilar adenopathy and bi lateral pulmonary metastases 4. Indeterminate 3.7 cm right adrenal nodule worrisome for adrenal metastasis. MRI may confirm presen ce or absence of adrenal adenoma Signer Name: Roland Lentz MD Signed: 04/22/2021 4:36 PM Workstation Name: [id number]
[2021-04-22 16:46] LABS: Bilirubin,Urine NEG (Negative); Blood,Urine NEG (Negative); Color,Urine Straw (Yellow); Protein,Urine <15 mg/dL mg/dL (Negative); Urobilinogen,Urine < 2.0 mg/dL (<2.0)
--- NOTE | 2021-04-22 16:55 | Cat Scan Report ---
CT ABDOMEN AND PELVIS WITH CONTRAST INDICATION: Left upper quadrant abdominal pain 100ml omni 350. TECHNIQUE: Axial CT images were obtained through the abdomen and pelvis after 100 cc IV contrast. All CT scans at this location are performed using CT dose reduction for ALARA by means of automated exposure contr ol. COMPARISON: None available. FINDINGS: LOWER CHEST: Malignant left pleural effusion with pleural nodularity and nodular enhancement posterio r to the left diaphragmatic fabian. See separate chest CTA for description of the left lower lobe pulmo nary mass LIVER: No significant abnormality. GALLBLADDER: No significant abnormality. BILE DUCTS: No significant abnormality. PANCREAS: No significant abnormality. SPLEEN: No significant abnormality. ADRENALS: 3.5 cm heterogeneous right adrenal nodule worrisome for adrenal metastasis but indeterminat e. RIGHT KIDNEY and URETER: No significant abnormality. LEFT KIDNEY and URETER: No significant abnormality. STOMACH and SMALL BOWEL: No significant abnormality. COLON: Sigmoid diverticulosis APPENDIX: No significant abnormality. PERITONEUM: No free fluid. No free air. No fluid collection. LYMPH NODES: No significant adenopathy. AORTA and ARTERIES: No significant abnormality. IVC and VEINS: No significant abnormality. URINARY BLADDER: No significant abnormality. REPRODUCTIVE ORGANS: No significant abnormality. ADDITIONAL FINDINGS: None. SKELETAL SYSTEM: Trabecular thickening left iliac bone without significant cortical thickening is ind eterminate but could represent early Paget disease IMPRESSION: 1. 3.5 cm right adrenal nodule worrisome for adrenal metastasis 2. Left lower lobe pulmonary mass and malignant left pleural effusion 3. 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 Nuclear medicine bone scan may be confirmatory Signer Name: Roland Lentz MD Signed: 04/22/2021 4:51 PM Workstation Name: [id number]
== END 2021-04-22 18:45 | disposition home or self-care (01) ==
LOC: ED 04:30
DX: J44.9 Chronic obstructive pulmonary disease, unspecified (principal); J90 Pleural effusion, not elsewhere classified; E27.9 Disorder of adrenal gland, unspecified; R59.9 Enlarged lymph nodes, unspecified; R91.8 Other nonspecific abnormal finding of lung field; R10.12 Left upper quadrant pain; R07.89 Other chest pain; I10 Essential (primary) hypertension; I25.2 Old myocardial infarction; M19.91 Primary osteoarthritis, unspecified site; F17.200 Nicotine dependence, unspecified, uncomplicated; Z90.710 Acquired absence of both cervix and uterus; Z79.899 Other long term (current) drug therapy; Z88.2 Allergy status to sulfonamides; Z88.6 Allergy status to analgesic agent
CPT/HCPCS: 36415; 71046; 71275; 74177; 80053; 81001; 82550; 83690; 83735; 84484; 85025; 93005; 96374; 99285; J2270; J7040; Q9967

== ENCOUNTER 2021-05-27 06:12 | Outpatient (CLI) | payer MEDICARE ==
[2021-05-27] MEDS ORDERED: SODIUM CHLORIDE 0.9% 500 ML 500 ML IV SCH (08:00)
[2021-05-27] MEDS ORDERED: ONDANSETRON 4 MG/2 ML INJ IV NR (08:00)
[2021-05-27 08:26] LABS: Basophils # (Auto) 0.1 K/mm3 (0.0-0.1); Basophils % (Auto) 0.8 % (0.0-1.8); Eosinophils # (Auto) 0.1 K/mm3 (0.0-0.4); Hematocrit 39.7 % (30.3-42.9); Hemoglobin 13.8 gm/dl (10.1-14.3); Lymphocytes # (Auto) 1.3 K/mm3 (1.2-5.4); Lymphocytes % (Auto) 18.8 % (13.4-35.0); Mean Corpuscular HGB Conc 35 % (30-34); Mean Corpuscular Volume 88 fl (79-97); Monocytes # (Auto) 0.5 K/mm3 (0.0-0.8); Monocytes % (Auto) 7.3 % (0.0-7.3); Platelet Count 281 K/mm3 (140-440); Red Cell Distribution Width 13.8 % (13.2-15.2)
[2021-05-27] MEDS ORDERED: HYDROmorphone 1 MG/1 ML INJ IV NR (08:30)
[2021-05-27 08:47] LABS: INR 0.91 (0.87-1.13)
--- NOTE | 2021-05-27 12:14 | Cat Scan Report ---
CT-GUIDED LUNG BIOPSY, LEFT INDICATION : Left lower lobe lung mass. COMPARISON: CTA chest 05/22/2021 PROCEDURE: The risks (including but not limited to bleeding and infection) and benefits were explain ed to the patient and informed consent was obtained. All CT scans at this location are performed usi ng CT dose reduction for ALARA by means of automated exposure control. A time out procedure was performed. The procedure site was prepped and draped in the usual sterile f ashion and lidocaine was used for local anesthesia. Anxiolysis was accomplished with 1 mg of IV Dilau did. Using CT guidance, a 19-gauge introducer needle was advanced to the leading edge of a 4.1 x 5.9 cm so lid mass in the anterior left lower lobe. 3 separate 2.2 cm 20-gauge core biopsies were obtained. Roseanna riggs was present and deemed the samples adequate. Follow-up scan at the end of the procedure demons trated no evidence for pneumothorax. The patient tolerated the procedure well with no complications. IMPRESSION: Successful CT-guided biopsy of the 4.1 x 5.9 cm left lower lobe mass. Signer Name: Daryl Hebert Jr, MD Signed: 05/27/2021 12:09 PM Workstation Name: [id number]
--- NOTE | 2021-05-27 14:11 | XRay Report ---
CHEST 1 VIEW INDICATION: post lung biopsy. COMPARISON: 04/22/2021 FINDINGS: Support devices: None. Heart: Within normal limits. Lungs/Pleura: Recent CT-guided biopsy of a left lower lobe mass was performed. Left basilar mass is a gain noted. The left upper lobe and right lung are clear. There is no evidence for pneumothorax. Left pleural effusion has nearly resolved since the previous exam. Additional findings: None. IMPRESSION: No evidence for pneumothorax after CT-guided biopsy of the left lower lobe. Persistent left lower lobe mass. Near resolution of the small left pleural effusion since 04/22/2021. Signer Name: Daryl Hebert Jr, MD Signed: 05/27/2021 2:07 PM Workstation Name: [id number]
[2021-05-27 14:33] VITALS: BP 105/64
== END 2021-05-27 14:56 | disposition home or self-care (01) ==
LOC: CT 06:12 → CATHLABREC 06:12
PROVIDERS: ATTEND Internal Medicine Hematology & Oncology
DX: R91.8 Other nonspecific abnormal finding of lung field (principal); C34.32 Malignant neoplasm of lower lobe, left bronchus or lung; J44.9 Chronic obstructive pulmonary disease, unspecified; E66.9 Obesity, unspecified; I25.10 Atherosclerotic heart disease of native coronary artery without angina pectoris; I42.9 Cardiomyopathy, unspecified; I10 Essential (primary) hypertension; M19.90 Unspecified osteoarthritis, unspecified site; Z82.5 Family history of asthma and other chronic lower respiratory diseases; Z80.0 Family history of malignant neoplasm of digestive organs; Z88.6 Allergy status to analgesic agent; Z88.2 Allergy status to sulfonamides; Z79.899 Other long term (current) drug therapy; Z87.891 Personal history of nicotine dependence; Z68.32 Body mass index [BMI] 32.0-32.9, adult; Z90.710 Acquired absence of both cervix and uterus; Z98.890 Other specified postprocedural states; Z82.49 Family history of ischemic heart disease and other diseases of the circulatory system
CPT/HCPCS: 32408; 36415; 71045; 82962; 85025; 85610; 85730; 88172; 88173; 88305; J1170; J2405; J7040; 88104; 88341; 88342

== ENCOUNTER 2021-06-24 09:05 | Outpatient (CLI) | payer MEDICARE | END 2021-06-24 09:06 | disposition home or self-care (01) | LOC: MRI 09:05 | PROVIDERS: ATTEND Internal Medicine Hematology & Oncology | DX: C34.92 Malignant neoplasm of unspecified part of left bronchus or lung (principal); R91.1 Solitary pulmonary nodule; R91.8 Other nonspecific abnormal finding of lung field | CPT/HCPCS: 74183; A9575 ==

== ENCOUNTER 2021-07-26 09:35 | Emergency (ER) | payer MEDICARE ==
--- NOTE | 2021-07-26 11:30 | Emergency Department Report ---
ED Medical Clearance HPI - General Chief complaint: Hyperglycemia Stated complaint: HIGH GLUCOSE Time Seen by Provider: 07/26/21 11:24 Source: patient Mode of arrival: Ambulatory - History of Present Illness Initial comments: 71-year-old -[place] female with a current history of lung cancer COPD and diabetes. Patient reports she was told to come to the emergency room to have her blood sugar checked and fluids as she had elevated blood sugar over 600-day before. Patient went to her primary care provider's office and was placed on Tresiba. Patient is currently on Januvia 100 mg and glipizide 10 mg. Patient reports that her chemo medication states that it can raise her blood sugar. Patient denies any abnormal shortness of breath no chest pain no increased thirst no increased urination. Patient reports that she is fully vaccinated for Covid. Blood sugar was 277 in triage Onset/Timin -: days(s) Reason for Medical Clearance: laboratory abnormality Treatments Prior to Arrival: none Home medications: Home Medications Medication Instructions Recorded Confirmed Last Taken Albuterol Sulfate [Proventil HFA] 1 - 2 puff IH Q4H PRN 10/27/13 05/27/21 05/27/21 0600 Clopidogrel Bisulfate [Plavix] 75 mg PO DAILY 10/27/13 05/27/21 05/20/21 1 tab Isosorbide Mononitrate [Isosorbide 60 mg PO DAILY 10/27/13 05/27/21 05/27/21 06:00 Mononitrate ER (IMDUR)] 1 tab Lisinopril/Hydrochlorothiazide 1 tab PO QDAY 10/27/13 05/27/21 05/27/21 06:00 [Zestoretic 20-25 mg] 1 tab Oxybutynin [Ditropan] 5 mg PO DAILY 10/27/13 05/27/21 05/27/21 06:00 1 tab Simvastatin 20 mg PO QDAY 10/27/13 05/27/21 05/27/21 06:00 1 tab Previous Rx's Medication Instructions Recorded Last Taken Type Pantoprazole [Protonix TAB] 40 mg PO DAILY #30 tablet 10/31/13 05/27/21 06:00 Rx 1 tab Albuterol Sulfate [Proair 90 mcg IH Q4HR PRN #2 aer.[email or web address] 04/22/21 05/27/21 06:00 Rx Respiclick] Morphine Sulfate [Morphine Sulfate 7.5 mg PO Q6HR PRN #10 tablet 04/22/21 Unknown Rx IR] Allergies/Adverse reactions: Allergies Allergy/AdvReac Type Severity Reaction Status Date / Time aspirin Allergy Hives Verified 03/12/21 14:08 Sulfa (Sulfonamide Allergy Vomiting Verified 03/12/21 14:08 Antibiotics) ED Review of Systems ROS: Stated complaint: HIGH GLUCOSE Other details as noted in HPI Comment: All other systems reviewed and negative ED Past Medical Hx - Past Medical History Hx Hypertension: Yes Hx Heart Attack/AMI: Yes (MS) Hx Congestive Heart Failure: No Hx Diabetes: Yes Hx Arthritis: Yes Hx Asthma: No Hx COPD: Yes (COPD) - Surgical History Additional Surgical History: hysterectomy - Social History Smoking Status: Former Smoker - Medications Home Medications: Home Medications Medication Instructions Recorded Confirmed Last Taken Type Albuterol Sulfate [Proventil HFA] 1 - 2 puff IH Q4H PRN 10/27/13 05/27/21 05/27/21 History 0600 Clopidogrel Bisulfate [Plavix] 75 mg PO DAILY 10/27/13 05/27/21 05/20/21 History 1 tab Isosorbide Mononitrate [Isosorbide 60 mg PO DAILY 10/27/13 05/27/21 05/27/21 06:00 History Mononitrate ER (IMDUR)] 1 tab Lisinopril/Hydrochlorothiazide 1 tab PO QDAY 10/27/13 05/27/21 05/27/21 06:00 History [Zestoretic 20-25 mg] 1 tab Oxybutynin [Ditropan] 5 mg PO DAILY 10/27/13 05/27/21 05/27/21 06:00 History 1 tab Simvastatin 20 mg PO QDAY 10/27/13 05/27/21 05/27/21 06:00 History 1 tab Pantoprazole [Protonix TAB] 40 mg PO DAILY #30 tablet 10/31/13 05/27/21 05/27/21 06:00 Rx 1 tab Albuterol Sulfate [Proair 90 mcg IH Q4HR PRN #2 aer.[email or web address] 04/22/21 05/27/21 05/27/21 06:00 Rx Respiclick] Morphine Sulfate [Morphine Sulfate 7.5 mg PO Q6HR PRN #10 tablet 04/22/21 05/27/21 Unknown Rx IR] ED Physical Exam - General Limitations: No Limitations General appearance: alert, in no apparent distress - Head Head exam: Present: atraumatic, normocephalic - Eye Eye exam: Present: normal appearance - ENT ENT exam: Present: mucous membranes moist - Neck Neck exam: Present: normal inspection - Respiratory Respiratory exam: Present: normal lung sounds bilaterally. Absent: respiratory distress - Cardiovascular Cardiovascular Exam: Present: regular rate, normal rhythm. Absent: systolic mur mur, diastolic murmur, rubs, gallop - GI/Abdominal GI/Abdominal exam: Present: soft, normal bowel sounds - Extremities Exam Extremities exam: Present: normal inspection - Back Exam Back exam: Present: normal inspection - Neurological Exam Neurological exam: Present: alert, oriented X3 - Psychiatric Psychiatric exam: Present: normal affect, normal mood - Skin Skin exam: Present: warm, dry, intact, normal color. Absent: rash ED Course Vital Signs 07/26/21 10:27 Temperature 98.2 F Pulse Rate 78 Respiratory 16 Rate Blood Pressure 136/83 [Left] O2 Sat by Pulse 98 Oximetry ED Medical Decision Making - Medical Decision Making 71-year-old -[place] female with a current history of lung cancer COPD and diabetes. Patient reports she was told to come to the emergency room to have her blood sugar checked and fluids as she had elevated blood sugar over 600-day before. Patient went to her primary care provider's office and was placed on Tresiba. Patient is currently on Januvia 100 mg and glipizide 10 mg. Patient reports that her chemo medication states that it can raise her blood sugar. Patient denies any abnormal shortness of breath no chest pain no increased thirst no increased urination. Patient reports that she is fully vaccinated for Covid. Blood sugar was 277 in triage Discussed with patient that her blood sugar is stable for the emergency room. Discussed with patient to increase her fluids. Avoid high carb diet and to keep her appointment with her primary care provider which is Edwina Vega for next week. Patient verbalized understanding ED Disposition Clinical Impression: Hyperglycemia due to type 2 diabetes mellitus, Lung cancer, COPD (chronic obstructive pulmonary disease) Disposition: HOME / SELF CARE / HOMELESS Is pt being admited?: No Does the pt Need Aspirin: No Condition: Stable Instructions: Diabetes Mellitus Type 2 in Adults (ED), Chronic Obstructive Pulmonary Disease (ED), Type 2 Diabetes Mellitus, Self Care, Adult Additional Instructions: Please continue with your current medications that are prescribed by your primary care provider. Increase your water intake. Follow a low-carb diet. And keep your appointment with your primary care provider next week. Referrals: Edwina Smith [Other] - 3-5 Days Time of Disposition: 11:31
[2021-07-26 12:24] VITALS: BP 140/88
== END 2021-07-26 12:18 | disposition home or self-care (01) ==
LOC: ED 09:35
DX: E11.65 Type 2 diabetes mellitus with hyperglycemia (principal); J44.9 Chronic obstructive pulmonary disease, unspecified; C34.90 Malignant neoplasm of unspecified part of unspecified bronchus or lung; I10 Essential (primary) hypertension; I25.2 Old myocardial infarction
CPT/HCPCS: 82962; 99282

== ENCOUNTER 2022-02-11 00:39 | Emergency (ER) | payer MEDICARE ==
--- NOTE | 2022-02-11 02:53 | Emergency Department Report ---
ED General Adult HPI - General Chief complaint: Extremity Injury, Lower Stated complaint: Cramping, tingling Time Seen by Provider: 02/11/22 02:40 Source: patient, RN notes reviewed, old records reviewed Mode of arrival: Stretcher Limitations: No Limitations - History of Present Illness Initial comments: Hematology oncology: Dr. Oropeza The patient is a pleasant 71-year-old female with a history of DVT, currently on Plavix and Eliquis. She also has a history of lung cancer. She presents to the ER today with a complaint anterior distal tibial lower extremity tingling, numbness and cramping which has been present for 1 month. She also endorses int ermittent swelling of her lower extremities which is now resolved. She currently denies headache, neck pain, chest pain, abdominal pain, shortness of breath, nausea, vomiting diarrhea, hematemesis and bright red blood per rectum. She denies focal extremity weakness and numbness as well as urinary symptoms. The symptoms are intermittent, and do not have exacerbating or relieving factors. They occasionally radiate up her leg She is adamant that she is compliant with her Plavix and with her eliquis. She reports she has not had any missed doses. She reports lower extremity DVT was diagnosed a little bit over a month ago. She has a right-sided thoracic port, and believes that she is current receiving chemotherapy for her lung cancer. -: month(s) Location: left, right, lower extremity Radiation: extremity Quality: aching Consistency: intermittent Improves with: none Worsens with: none - Related Data Home Medications Medication Instructions Recorded Confirmed Last Taken Albuterol Sulfate [Proventil HFA] 1 - 2 puff IH Q4H PRN 10/27/13 05/27/21 05/27/21 0600 Clopidogrel Bisulfate [Plavix] 75 mg PO DAILY 10/27/13 05/27/21 05/20/21 1 tab Isosorbide Mononitrate [Isosorbide 60 mg PO DAILY 10/27/13 05/27/21 05/27/21 06:00 Mononitrate ER (IMDUR)] 1 tab Lisinopril/Hydrochlorothiazide 1 tab PO QDAY 10/27/13 05/27/21 05/27/21 06:00 [Zestoretic 20-25 mg] 1 tab Oxybutynin [Ditropan] 5 mg PO DAILY 10/27/13 05/27/21 05/27/21 06:00 1 tab Simvastatin 20 mg PO QDAY 10/27/13 05/27/21 05/27/21 06:00 1 tab Previous Rx's Medication Instructions Recorded Last Taken Type Pantoprazole [Protonix TAB] 40 mg PO DAILY #30 tablet 10/31/13 05/27/21 06:00 Rx 1 tab Albuterol Sulfate [Proair 90 mcg IH Q4HR PRN #2 aer.[email or web address] 04/22/21 05/27/21 06:00 Rx Respiclick] Morphine Sulfate [Morphine Sulfate 7.5 mg PO Q6HR PRN #10 tablet 04/22/21 Unknown Rx IR] Allergies Allergy/AdvReac Type Severity Reaction Status Date / Time aspirin Allergy Hives Verified 03/12/21 14:08 Sulfa (Sulfonamide Allergy Vomiting Verified 03/12/21 14:08 Antibiotics) ED Review of Systems ROS: Stated complaint: BLOOD CLOTS IN BOTH LEGS Other details as noted in HPI Comment: All other systems reviewed and negative Musculoskeletal: myalgia Neurological: numbness, paresthesias ED Past Medical Hx - Past Medical History Previous Medical History?: Yes Hx Hypertension: Yes Hx Heart Attack/AMI: Yes (VT) Hx Congestive Heart Failure: No Hx Diabetes: Yes Hx Arthritis: Yes Hx Asthma: No Hx COPD: Yes (COPD) - Surgical History Past Surgical History?: Yes Additional Surgical History: hysterectomy - Social History Smoking Status: Never Smoker Substance Use Type: None - Medications Home Medications: Home Medications Medication Instructions Recorded Confirmed Last Taken Type Albuterol Sulfate [Proventil HFA] 1 - 2 puff IH Q4H PRN 10/27/13 05/27/21 05/27/21 History 0600 Clopidogrel Bisulfate [Plavix] 75 mg PO DAILY 10/27/13 05/27/21 05/20/21 History 1 tab Isosorbide Mononitrate [Isosorbide 60 mg PO DAILY 10/27/13 05/27/21 05/27/21 06:00 History Mononitrate ER (IMDUR)] 1 tab Lisinopril/Hydrochlorothiazide 1 tab PO QDAY 10/27/13 05/27/21 05/27/21 06:00 History [Zestoretic 20-25 mg] 1 tab Oxybutynin [Ditropan] 5 mg PO DAILY 10/27/13 05/27/21 05/27/21 06:00 History 1 tab Simvastatin 20 mg PO QDAY 10/27/13 05/27/21 05/27/21 06:00 History 1 tab Pantoprazole [Protonix TAB] 40 mg PO DAILY #30 tablet 10/31/13 05/27/21 05/27/21 06:00 Rx 1 tab Albuterol Sulfate [Proair 90 mcg IH Q4HR PRN #2 aer.[email or web address] 04/22/21 05/27/21 05/27/21 06:00 Rx Respiclick] Morphine Sulfate [Morphine Sulfate 7.5 mg PO Q6HR PRN #10 tablet 04/22/21 05/27/21 Unknown Rx IR] ED Physical Exam - General Limitations: No Limitations General appearance: alert, in no apparent distress - Head Head exam: Present: atraumatic, normocephalic - Eye Eye exam: Present: normal appearance, EOMI. Absent: nystagmus - ENT ENT exam: Present: normal exam, normal orophraynx, mucous membranes moist, normal external ear exam - Neck Neck exam: Present: normal inspection, full ROM. Absent: tenderness, meningismus - Respiratory Respiratory exam: Present: normal lung sounds bilaterally. Absent: respiratory distress, wheezes, rales, rhonchi, stridor, decreased breath sounds - Cardiovascular Cardiovascular Exam: Present: regular rate, normal rhythm, normal heart sounds. Absent: bradycardia, tachycardia, irregular rhythm, systolic murmur, diastolic murmur, rubs, gallop - GI/Abdominal GI/Abdominal exam: Present: soft. Absent: distended, tenderness, guarding, rebound, rigid, pulsatile mass - Extremities Exam Extremities exam: Present: normal inspection, full ROM, other (2+ pulses noted in the bilateral upper and lower extremities. There is no palpable cord. negative Homans sign. Muscular compartments are soft. The pelvis is stable.). Absent: pedal edema, calf tenderness - Back Exam Back exam: Present: normal inspection, full ROM. Absent: tenderness, CVA tenderness (R), CVA tenderness (L), paraspinal tenderness, vertebral tenderness - Neurological Exam Neurological exam: Present: alert, oriented X3, reflexes normal, other (No facial droop. Tongue midline. Extraocular movements intact bilaterally. Facial sensation intact to light touch in V1, V2, V3 distribution bilaterally. 5 and a 5 strength in 4 extremities. Sensation intact to light touch in 4 extremities.). Absent: motor sensory deficit (Brisk and downgoing plantar reflexes bilaterally) - Psychiatric Psychiatric exam: Present: normal affect, normal mood - Skin Skin exam: Present: warm, dry, intact, normal color. Absent: rash ED Course Vital Signs 02/11/22 02/11/22 01:31 03:42 Temperature 97.9 F Pulse Rate 68 62 Respiratory 18 18 Rate Blood Pressure 92/59 Blood Pressure 97/53 [Left] O2 Sat by Pulse 99 98 Oximetry - Reevaluation(s) Reevaluation #1: 02/11/22 03:29 Differential diagnosis, including but not limited to: Electrolyte derangement, history of DVT, peripheral neuropathy, encounter for medical screening exam, muscle cramps, elevated CK Assessment and plan: 71-year-old female, who was afebrile, with reassuring vital signs, with a benign and unremarkable neurologic examination, who is not currently tachycardic, tachypneic or hypoxic, denies chest pain or shortness of breath, presenting to the ER today with a complaint of lower extremity intermittent cramping, intermittent swelling, and intermittent distal tingling. She has appropriate strength, sensation and reflexes, with no midline spinal tenderness or step-offs. Patient is endorsing compliance with her anticoagulation. There is no lower extremity asymmetry. Doubt emergent condition at this time. Advised patient of such. Check appropriate laboratory studies. Reassess. 02/11/22 03:33 Laboratory studies reviewed and appreciated. Does not meet definition criteria for tumor lysis syndrome. May follow-up with an outpatient primary care doctor or sales development specialist for incidental abnormalities ED Medical Decision Making - Lab Data Result diagrams: 02/11/22 02:57 02/11/22 02:57 Vital Signs 02/11/22 01:31 Temperature 97.9 F Pulse Rate 68 Respiratory 18 Rate Blood Pressure 92/59 O2 Sat by Pulse 99 Oximetry Lab Results 02/11/22 02/11/22 02/11/22 Range/Units 02:57 02:57 02:57 WBC 3.8 L (4.5-11.0) K/mm3 RBC 3.27 L (3.65-5.03) M/mm3 Hgb 10.9 (10.1-14.3) gm/dl Hct 31.5 (30.3-42.9) % MCV 96 (79-97) fl MCH 33 H (28-32) pg MCHC 35 H (30-34) % RDW 13.8 (13.2-15.2) % Plt Count 204 (140-440) K/mm3 Lymph % (Auto) 48.6 H (13.4-35.0) % [place] % (Auto) 10.1 H (0.0-7.3) % Eos % (Auto) 1.7 (0.0-4.3) % Baso % (Auto) 0.8 (0.0-1.8) % Lymph # (Auto) 1.9 (1.2-5.4) K/mm3 [place] # (Auto) 0.4 (0.0-0.8) K/mm3 Eos # (Auto) 0.1 (0.0-0.4) K/mm3 Baso # (Auto) 0.0 (0.0-0.1) K/mm3 Seg Neutrophils % 38.8 L (40.0-70.0) % Seg Neutrophils # 1.5 L (1.8-7.7) K/mm3 PT 16.3 H (12.2-14.9) Sec. INR 1.17 H (0.87-1.13) APTT 30.3 (24.2-36.6) Sec. Sodium 137 (137-145) mmol/L Potassium 3.9 (3.6-5.0) mmol/L Chloride 102.1 (98-107) mmol/L Carbon Dioxide 25 (22-30) mmol/L Anion Gap 14 mmol/L BUN 30 H (7-17) mg/dL Creatinine 1.3 H (0.6-1.2) mg/dL Estimated GFR 49 ml/min BUN/Creatinine Ratio 23 % Glucose 129 H (65-100) mg/dL Uric Acid 8.0 H (3.5-7.6) mg/dL Calcium 10.4 H (8.4-10.2) mg/dL Phosphorus 2.70 (2.5-4.5) mg/dL Magnesium 2.00 (1.7-2.3) mg/dL Total Bilirubin 0.30 (0.1-1.2) mg/dL AST 14 (5-40) units/L ALT 13 (7-56) units/L Alkaline Phosphatase 71 (35-129) units/L Lactate Dehydrogenase 250 H (91-180) units/L Total Creatine Kinase 70 (30-135) units/L Total Protein 6.9 (6.3-8.2) g/dL Albumin 4.3 (3.9-5) g/dL Albumin/Globulin Ratio 1.7 % Critical care attestation.: If time is entered above; I have spent that time in minutes in the direct care of this critically ill patient, excluding procedure time. ED Disposition Clinical Impression: Cramps of lower extremity, Tingling in extremities Disposition: HOME / SELF CARE / HOMELESS Is pt being admited?: No Does the pt Need Aspirin: No Condition: Good Instructions: Muscle Cramps and Spasms, [id number], Peripheral Neuropathy Additional Instructions: Please continue current outpatient medications. Please follow-up with your primary care doctor or hematology academic specialist within the next week. Participate in physical activities as tolerated, and please make certain to remain compliant with your Plavix and Eliquis. Symptoms likely coming from intermittent peripheral edema, or peripheral neuropathy. Please return to the emergency room right away with new pain, worsened pain, migration of pain, projectile vomiting, change in mental status, confusion, inability tolerate liquid feeds, new, worsened or different symptoms not present on the initial emergency room evaluation Please make certain to drink at least 4 cups of water per day. Referrals: MEDARDO OROPEZA MD [Staff Physician] - 7-10 days [facility] [Provider Group] - 3-5 Days
[2022-02-11 03:07] LABS: Basophils % (Auto) 0.8 % (0.0-1.8); Eosinophils # (Auto) 0.1 K/mm3 (0.0-0.4); Eosinophils % (Auto) 1.7 % (0.0-4.3); Hematocrit 31.5 % (30.3-42.9); Hemoglobin 10.9 gm/dl (10.1-14.3); Lymphocytes # (Auto) 1.9 K/mm3 (1.2-5.4); Lymphocytes % (Auto) 48.6 % (13.4-35.0); Mean Corpuscular HGB Conc 35 % (30-34); Mean Corpuscular Volume 96 fl (79-97); Monocytes # (Auto) 0.4 K/mm3 (0.0-0.8); Monocytes % (Auto) 10.1 % (0.0-7.3); Platelet Count 204 K/mm3 (140-440); Red Blood Count 3.27 M/mm3 (3.65-5.03); Red Cell Distribution Width 13.8 % (13.2-15.2)
[2022-02-11 03:23] LABS: INR 1.17 (0.87-1.13)
[2022-02-11 03:24] LABS: Partial Thromboplastin Time 30.3 Sec. (24.2-36.6)
[2022-02-11 03:30] LABS: Albumin 4.3 g/dL (3.9-5); Calcium 10.4 mg/dL (8.4-10.2)
[2022-02-11 03:43] VITALS: BP 97/53
== END 2022-02-11 04:20 | disposition home or self-care (01) ==
LOC: ED 00:39
DX: R25.2 Cramp and spasm (principal); R20.2 Paresthesia of skin; I10 Essential (primary) hypertension
CPT/HCPCS: 36415; 80053; 82550; 83615; 83735; 84100; 84550; 85025; 85610; 85730; 99283

== ENCOUNTER 2022-07-27 10:37 | Emergency (ER) | payer MEDICARE ==
--- NOTE | 2022-07-27 11:03 | Emergency Department Report ---
Blank Doc - Documentation Documentation: 72-year-old female that presents with abdominal pain with nausea vomiting. 1- This is a initial triage assessment/medical screening only. Full assessment and work-up will be completed once the patient is in proper hospital gown, ED bed and in a private room setting. This initial assessment/diagnostic orders/clinical plan/ treatment(s) is/are subject to change based on pt's health status, clinical progression and re-assessment by fellow clinical providers in the ED. Further treatment and workup at subsequent clinical providers discretion. Patient/guardians urged not to elope from ED as their condition may be serious if not clinically assessed and managed. 2-labs 3-UA The patient was evaluated in the emergency department for symptoms described in the history of present illness. He/she was evaluated in the context of the global COVID-19 pandemic, which necessitated consideration that the patient might be at risk for infection with the virus that causes COVID-19. Institutional protocols and algorithms that pertain to the evaluation of patients at risk for COVID-19 are in a state of rapid change based on information released by regulatory bodies including the CDC and federal and state organizations. These policies and algorithms were followed during the patient's care in the emergency department. Please note that these policies, procedures and recommendations changed on a rapid basis.
[2022-07-27 11:39] LABS: Hematocrit 41.6 % (30.3-42.9); Hemoglobin 13.3 gm/dl (10.1-14.3); Mean Corpuscular HGB Conc 32 % (30-34); Mean Corpuscular Volume 99 fl (79-97); Platelet Count 506 K/mm3 (140-440); Red Blood Count 4.22 M/mm3 (3.65-5.03)
[2022-07-27 11:59] LABS: Color,Urine Yellow (Yellow); RBC,Urine < 1.0 /HPF (0.0-6.0); WBC,Urine < 1.0 /HPF (0.0-6.0)
[2022-07-27 12:19] LABS: Basophils % (Manual) 0 % (0.0-1.8); Eosinophils % (Manual) 0 % (0.0-4.3); Platelet Estimate Consistent w Auto; RBC Morphology Normal; Total Cells Counted 100
[2022-07-28] MEDS ORDERED: PROMETHAZINE 25 MG TAB PO ONE (02:46)
[2022-07-28] MEDS ORDERED: ONDANSETRON 4 MG/2 ML INJ IV ONE (02:46)
[2022-07-28] MEDS ORDERED: INSULIN REGULAR, HUMAN 100 UNITS/1 ML IV ONE (02:47)
--- NOTE | 2022-07-28 02:53 | Emergency Department Report ---
ED General Adult HPI - General Chief complaint: Nausea/Vomiting/Diarrhea Stated complaint: THROWING UP PUI?: No Time Seen by Provider: 07/27/22 10:58 Source: patient Mode of arrival: Ambulatory Limitations: No Limitations - History of Present Illness Initial comments: This is a pleasant 72-year-old female with medical history of diabetes on Januvia, lung cancer stage IV according to the patient, myocardial infarction with no stents, and also hypertension. Patient said that she came here today because of feeling nauseated and also vomiting for the past 4 days. Patient said that she has Zofran 8 mg but she has not used it today patient cannot keep it down. Patient said that she did not take her Januvia today as well because she did not eat anything. Patient denies any other symptoms. Patient denies fever chill night sweat dizziness blurred vision lightheadedness headache tinnitus ear pain runny nose sore throat loss of taste loss of smell chest pain palpitation short of breath cough abdominal pain diarrhea constipation dysuria myalgia arthralgia new rash and heat or cold intolerance. Severity scale (0 -10): 4 - Related Data Home Medications Medication Instructions Recorded Confirmed Last Taken Albuterol Sulfate [Proventil HFA] 1 - 2 puff IH Q4H PRN 10/27/13 05/27/21 05/27/21 0600 Clopidogrel Bisulfate [Plavix] 75 mg PO DAILY 10/27/13 05/27/21 05/20/21 1 tab Isosorbide Mononitrate [Isosorbide 60 mg PO DAILY 10/27/13 05/27/21 05/27/21 06:00 Mononitrate ER (IMDUR)] 1 tab Lisinopril/Hydrochlorothiazide 1 tab PO QDAY 10/27/13 05/27/21 05/27/21 06:00 [Zestoretic 20-25 mg] 1 tab Oxybutynin [Ditropan] 5 mg PO DAILY 10/27/13 05/27/21 05/27/21 06:00 1 tab Simvastatin 20 mg PO QDAY 10/27/13 05/27/21 05/27/21 06:00 1 tab Previous Rx's Medication Instructions Recorded Last Taken Type Pantoprazole [Protonix TAB] 40 mg PO DAILY #30 tablet 10/31/13 05/27/21 06:00 Rx 1 tab Albuterol Sulfate [Proair 90 mcg IH Q4HR PRN #2 [email or web address] 04/22/21 05/27/21 06:00 Rx Respiclick] Morphine Sulfate [Morphine Sulfate 7.5 mg PO Q6HR PRN #10 tablet 04/22/21 Unknown Rx IR] Ciprofloxacin HCl 500 mg PO Q12H 10 Days #20 07/28/22 Unknown Rx Ondansetron [Zofran Oral Liq] 4 mg PO ONCE 10 Days #10 oralsyr 07/28/22 Unknown Rx metroNIDAZOLE [Flagyl] 500 mg PO Q8H 10 Days #30 tab 07/28/22 Unknown Rx Allergies Allergy/AdvReac Type Severity Reaction Status Date / Time aspirin Allergy Hives Verified 03/12/21 14:08 Sulfa (Sulfonamide Allergy Vomiting Verified 03/12/21 14:08 Antibiotics) ED Review of Systems ROS: Stated complaint: THROWING UP Other details as noted in HPI Comment: All other systems reviewed and negative Constitutional: no symptoms reported, see HPI Eyes: as per HPI ENT: as per HPI Respiratory: no symptoms reported, see HPI Cardiovascular: as per HPI Endocrine: no symptoms reported, see HPI Gastrointestinal: as per HPI, nausea, vomiting. denies: abdominal pain, diarrhea, constipation, hematemesis, melena, hematochezia Genitourinary: as per HPI Musculoskeletal: as per HPI Skin: as per HPI Neurological: as per HPI Psychiatric: as per HPI Hematological/Lymphatic: as per HPI ED Past Medical Hx - Past Medical History Previous Medical History?: Yes Hx Hypertension: Yes Hx Heart Attack/AMI: Yes ([place]) Hx Congestive Heart Failure: No Hx Diabetes: Yes Hx Arthritis: Yes Hx Asthma: No Hx COPD: Yes (COPD) - Surgical History Additional Surgical History: hysterectomy - Social History Smoking Status: Never Smoker Substance Use Type: None - Medications Home Medications: Home Medications Medication Instructions Recorded Confirmed Last Taken Type Albuterol Sulfate [Proventil HFA] 1 - 2 puff IH Q4H PRN 10/27/13 05/27/21 05/27/21 History 0600 Clopidogrel Bisulfate [Plavix] 75 mg PO DAILY 10/27/13 05/27/21 05/20/21 History 1 tab Isosorbide Mononitrate [Isosorbide 60 mg PO DAILY 10/27/13 05/27/21 05/27/21 06:00 History Mononitrate ER (IMDUR)] 1 tab Lisinopril/Hydrochlorothiazide 1 tab PO QDAY 10/27/13 05/27/21 05/27/21 06:00 History [Zestoretic 20-25 mg] 1 tab Oxybutynin [Ditropan] 5 mg PO DAILY 10/27/13 05/27/21 05/27/21 06:00 History 1 tab Simvastatin 20 mg PO QDAY 10/27/13 05/27/21 05/27/21 06:00 History 1 tab Pantoprazole [Protonix TAB] 40 mg PO DAILY #30 tablet 10/31/13 05/27/21 05/27/21 06:00 Rx 1 tab Albuterol Sulfate [Proair 90 mcg IH Q4HR PRN #2 [email or web address] 04/22/21 05/27/21 05/27/21 06:00 Rx Respiclick] Morphine Sulfate [Morphine Sulfate 7.5 mg PO Q6HR PRN #10 tablet 04/22/21 05/27/21 Unknown Rx IR] Ciprofloxacin HCl 500 mg PO Q12H 10 Days #20 07/28/22 Unknown Rx Ondansetron [Zofran Oral Liq] 4 mg PO ONCE 10 Days #10 oralsyr 07/28/22 Unknown Rx metroNIDAZOLE [Flagyl] 500 mg PO Q8H 10 Days #30 tab 07/28/22 Unknown Rx ED Physical Exam - General Limitations: No Limitations General appearance: alert, in no apparent distress - Head Head exam: Present: atraumatic, normocephalic, normal inspection - Eye Eye exam: Present: normal appearance, PERRL, EOMI Pupils: Present: normal accommodation - ENT ENT exam: Present: normal exam, normal orophraynx, mucous membranes dry - Neck Neck exam: Present: normal inspection, full ROM - Respiratory Respiratory exam: Present: normal lung sounds bilaterally - Cardiovascular Cardiovascular Exam: Present: normal rhythm, tachycardia, normal heart sounds - GI/Abdominal GI/Abdominal exam: Present: soft, normal bowel sounds. Absent: distended, tenderness, guarding, rebound, rigid - Extremities Exam Extremities exam: Present: normal inspection, full ROM, normal capillary refill - Back Exam Back exam: Present: normal inspection, full ROM - Neurological Exam Neurological exam: Present: alert, oriented X3, CN II-XII intact - Psychiatric Psychiatric exam: Present: normal affect, normal mood - Skin Skin exam: Present: normal color ED Course Vital Signs 07/27/22 07/28/22 07/28/22 11:00 02:08 03:15 Temperature 98.4 F 98.0 F Pulse Rate 107 H 113 H Respiratory 18 20 24 Rate Blood Pressure 155/99 Blood Pressure 160/100 [Left] O2 Sat by Pulse 100 100 100 Oximetry 07/28/22 07/28/22 07/28/22 03:16 03:30 03:46 Temperature Pulse Rate 104 H 104 H 112 H Respiratory 24 Rate Blood Pressure 157/101 170/105 135/114 Blood Pressure [Left] O2 Sat by Pulse 100 100 100 Oximetry 07/28/22 07/28/22 07/28/22 04:00 04:28 04:30 Temperature Pulse Rate 108 H 114 H 113 H Respiratory 20 15 19 Rate Blood Pressure 177/94 Blood Pressure [Left] O2 Sat by Pulse 97 100 100 Oximetry 07/28/22 07/28/22 07/28/22 04:46 05:00 05:16 Temperature Pulse Rate 113 H 105 H 110 H Respiratory 12 22 Rate Blood Pressure 176/97 183/106 Blood Pressure [Left] O2 Sat by Pulse 99 98 99 Oximetry 07/28/22 07/28/22 07/28/22 05:30 05:46 06:00 Temperature Pulse Rate 106 H 110 H 112 H Respiratory 18 21 26 H Rate Blood Pressure 174/105 179/99 172/100 Blood Pressure [Left] O2 Sat by Pulse 100 100 99 Oximetry ED Medical Decision Making - Lab Data Result diagrams: 07/27/22 11:07 07/28/22 05:30 Critical care attestation.: If time is entered above; I have spent that time in minutes in the direct care of this critically ill patient, excluding procedure time. ED Disposition Clinical Impression: Colitis, Elevated blood pressure reading Disposition: 01 HOME / SELF CARE / HOMELESS Is pt being admited?: No Does the pt Need Aspirin: No Condition: Stable Instructions: Colitis Additional Instructions: Your work-up in the emergency room revealed that you have colitis. Please take the medication as prescribed. Make a follow-up appointment with your primary care provider to be seen within 3 days for further outpatient evaluation. Prescriptions: Ciprofloxacin HCl 500 mg PO Q12H 10 Days #20 metroNIDAZOLE [Flagyl] 500 mg PO Q8H 10 Days #30 tab Ondansetron [Zofran Oral Liq] 4 mg PO ONCE 10 Days #10 oralsyr Time of Disposition: 06:16
[2022-07-28] MEDS ORDERED: LACTATED RINGERS 1000 ML IV SOLN IV SCH (03:00)
--- NOTE | 2022-07-28 04:56 | Cat Scan Report ---
CT chest wo con INDICATION / CLINICAL INFORMATION: stage 4 lung cancer presents w/ wbc; any pna. TECHNIQUE: Axial CT imaging of the thorax was obtained without contrast. Coronal and sagittal reformatted imagin g obtained and reviewed. All CT scans at this location are performed using CT dose reduction for ALA RA by means of automated exposure control. COMPARISON: Prior CTA chest 04/22/2021 FINDINGS: CT chest without contrast was obtained. Multiple enlarged lymph nodes nodes are seen throughout the mediastinum. The largest lymph node is in the pretracheal region measuring 2.5 cm. Lymph nodes have clearly increased in size compared with pr ior exam of 04/22/2021. Thoracic aorta is of normal caliber. Heart size is normal. No coronary artery calcification of significance. No acute finding within the right lung. There is large solid mass within the left lower lobe abutting the major fissure. Mass as increased in size slightly since prior CT with maximum diameter of 6.2 cm . There is a second solid mass in the medial left lung base measuring 3 cm which appears to be a new finding. No significant pleural effusion. I do not see evidence of pneumonia in either lung. Images obtained through the upper abdomen demonstrate colonic thickening in the visualized segments o f colon. The appearance is certainly very suggestive for colitis. There is large right adrenal gland mass consistent with metastasis. Metastasis is 3.7 cm in diameter, having increased slightly since prior CT. No acute or significant osseous abnormality noted. IMPRESSION: 1. The visualized colon in the upper abdomen demonstrates colonic wall thickening and mild colonic in flammatory change consistent with colitis. 2. No evidence of pneumonia. 3. 6.2 cm left lower lobe lung mass, consistent with patient's known lung carcinoma. There is worseni ng mediastinal metastatic adenopathy as well as minimal worsening of right adrenal gland metastasis. 4. New 3 cm solid mass in the left lower lobe of the lung. Signer Name: Dulce Soriano MD Signed: 07/28/2022 4:51 AM Workstation Name: [id number]
[2022-07-28] MEDS ORDERED: PIPERACILLIN/TAZOBACTAM 3.375 3.375 GM/50 ML BAG IV ONE (05:23)
[2022-07-28 06:04] LABS: Calcium 10.9 mg/dL (8.4-10.2)
[2022-07-28 07:11] VITALS: BP 169/95
== END 2022-07-28 06:55 | disposition home or self-care (01) ==
LOC: ED 10:37
DX: K52.9 Noninfective gastroenteritis and colitis, unspecified (principal); I10 Essential (primary) hypertension; E11.9 Type 2 diabetes mellitus without complications
CPT/HCPCS: 36415; 71250; 80048; 80053; 81001; 82010; 82140; 82805; 83690; 85007; 85025; 96361; 96365; 96375; 99284; J2405; J2543; J7120; Q0169; 99283